=== PATIENT | male | born 1945 | race Caucasian/White ===

== ENCOUNTER 2017-08-18 12:07 | Emergency (ER) | payer OTHER ==
[2017-08-18 13:21] LABS: Hematocrit 44 % (42-52); Hemoglobin 14.9 g/dl (14.0-18.0); Mean Corpuscular HGB Conc 34 g/dl (31-36); Mean Corpuscular Hemoglobin 31 pg (27-31); Mean Corpuscular Volume 92 fL (80-94); Mean Platelet Volume 8 um3 (7.4-10.4); Red Blood Count 4.78 10^6/ul (4.0-5.4); Red Cell Distribution Width 14 % (10.5-15); White Blood Count 5.7 10^3/ul (3.5-10.8)
[2017-08-18 13:37] LABS: Albumin 4.1 g/dL (3.2-5.2); BUN/Creatinine Ratio 19.6 (8-20); Calcium 9.5 mg/dL (8.6-10.3); EGFR African American 92.1 (>60); EGFR Non-African American 71.6 (>60); Globulin 2.5 g/dL (2-4); Magnesium 2.2 mg/dL (1.9-2.7); Potassium 4.5 mmol/L (3.5-5.0); Total Bilirubin 0.4 mg/dL (0.2-1.0); Total Protein 6.6 g/dL (6.4-8.9)
[2017-08-18 13:51] LABS: TSH (Thyroid Stimulating Horm) 4.66 mcIU/mL (0.34-5.60)
--- NOTE | 2017-08-18 15:02 | RAD ---
INDICATION: Intracranial injury COMPARISON: None TECHNIQUE: Noncontrast axial source images were acquired from the skull base to the vertex. FINDINGS: Ventricles/sulci: The ventricles and cisterns are normal in size and configuration for age. Brain parenchyma: There is no focal parenchymal finding, evidence of intracranial mass, or intracranial mass effect. Intracranial hemorrhage:None. Extra-axial spaces: There are no abnormal extra axial fluid collections or evidence of extra-axial mass. Calvarium: There is no calvarial fracture or other calvarial abnormality. Scalp: There is no evidence of scalp or extracalvarial soft tissue abnormality. Paranasal sinuses/mastoid: The paranasal sinuses and mastoid air cells are clear. Other: None. IMPRESSION: NEGATIVE EXAMINATION
[2017-08-18 15:13] LABS: Urine Bilirubin Negative (Negative); Urine Glucose Negative (Negative); Urine Nitrite Negative (Negative)
[2017-08-18 19:24] VITALS: BP 124/68
--- NOTE | 2017-08-18 21:00 | ED ---
Devin Sanches Alfonso, scribed for Dagoberto Cha MD on 08/18/17 at 1254 . Complex/Multi-Sys Presentation - HPI Summary HPI Summary: This patient is a 71 year old M presenting to [facility] with a chief complaint of lightheaded dizziness since 6 days ago. He donated blood 6 days ago and had a syncopal episode a few hours after the blood draw. He does not know how long the syncopal episode lasted and it was unwitnessed. The patient rates the pain 1 /10 in severity. Symptoms aggravated by position change. Symptoms alleviated by nothing. Patient reports head trauma (during the syncopal episode), fatigue, diffuse left shoulder pain (after donating blood and returned this morning while at rest), lung congestion, and abdominal bloating and gas. Patient denies SOB, orthopnea, jaw pain, CP, insomnia, and headache. - History Of Current Complaint Chief Complaint: EDChestPainROMI Time Seen by Provider: 08/18/17 12:34 Hx Obtained From: Patient Onset/Duration: Sudden Onset, Lasting Days - 6, Still Present Timing: Constant Aggravating Factor(s): position change Alleviating Factor(s): nothing Associated Signs And Symptoms: Positive: Other - head trauma (during the syncopal episode), fatigue, diffuse left shoulder pain (after donating blood and returned this morning while at rest), lung congestion, and abdominal bloating and gas. Patient denies SOB, orthopnea, jaw pain, CP, insomnia, and headache. - Allergies/Home Medications Allergies/Adverse Reactions: Allergies Allergy/AdvReac Type Severity Reaction Status Date / Time No Known Allergies Allergy Verified 10/17/14 21:23 PMH/Surg Hx/FS Hx/Imm Hx Opthamlomology History: Denies: Hx Legally Blind EENT History: Denies: Hx Deafness Infectious Disease History: No Infectious Disease History: Denies: Traveled Outside the [place] in Last 30 Days - Family History Known Family History: Positive: Cardiac Disease - Father had MD x3 in the 60s - Social History Alcohol Use: Weekly Substance Use Type: Reports: None Smoking Status (MU): Former Smoker Review of Systems Positive: Fatigue Negative: Chest Pain Positive: Other - lung congestion." Negative orthopnea. Negative: Shortness Of Breath Positive: Other - abdominal bloating and gas Positive: Other - diffuse left shoulder pain (after donating blood and returned this morning while at rest); negative jaw pain Neurological: Other - lightheaded dizziness, head trauma (during the syncopal episode); negative insomnia, and headache. All Other Systems Reviewed And Are Negative: Yes Physical Exam - Summary Physical Exam Summary: Appearance: Well-appearing, no pain distress Skin: Warm, dry, color reflects adequate perfusion Head/face: Nml head/face Eyes: [place] conjunctiva. No nystagmus ENT: Nml ENT Neck: Supple, non-tender Respiratory: CTA, breath sound present Cardiovascular: RRR, Possible soft systolic ejection murmur Abdomen: Abd soft, non-tender, Bowel: Bowel sounds present Musculoskeletal: Nml musculoskeletal Neurological: Nml neuro, sensory/motor intact, A&Ox3, CN Intact II-III, GCS: 15 Psychiatric: Nml psychiatric, affect/mood appropriate Triage Information Reviewed: Yes Vital Signs On Initial Exam: Initial Vitals Temp Pulse Resp BP Pulse Ox 99.1 F 63 20 148/82 99 08/18/17 12:18 08/18/17 12:18 08/18/17 12:18 08/18/17 12:18 08/18/17 12:18 Vital Signs Reviewed: Yes - Zoltan Coma Scale Coma Scale Total: 15 Diagnostics - Vital Signs Vital Signs Temp Pulse Resp BP Pulse Ox 08/18/17 12:37 53 15 147/80 99 08/18/17 12:35 57 11 98 08/18/17 12:18 99.1 F 63 20 148/82 99 - Laboratory Lab Results: Lab Results 08/18/17 08/18/17 08/18/17 Range/Units 12:33 12:33 12:33 WBC 5.7 (3.5-10.8) 10^3/ul RBC 4.78 (4.0-5.4) 10^6/ul Hgb 14.9 (14.0-18.0) g/dl Hct 44 (42-52) % MCV 92 (80-94) fL MCH 31 (27-31) pg MCHC 34 (31-36) g/dl RDW 14 (10.5-15) % Plt Count 215 (150-450) 10^3/ul MPV 8 (7.4-10.4) um3 Neut % (Auto) 61.2 (38-83) % Lymph % (Auto) 21.2 L (25-47) % Wilkinson % (Auto) 12.2 H (1-9) % Eos % (Auto) 4.8 (0-6) % Baso % (Auto) 0.6 (0-2) % Absolute Neuts (auto) 3.5 (1.5-7.7) 10^3/ul Absolute Lymphs (auto) 1.2 (1.0-4.8) 10^3/ul Absolute Monos (auto) 0.7 (0-0.8) 10^3/ul Absolute Eos (auto) 0.3 (0-0.6) 10^3/ul Absolute Basos (auto) 0 (0-0.2) 10^3/ul Absolute Nucleated RBC 0 10^3/ul Nucleated RBC % 0 Sodium 135 (133-145) mmol/L Potassium 4.5 (3.5-5.0) mmol/L Chloride 103 (101-111) mmol/L Carbon Dioxide 30 (22-32) mmol/L Anion Gap 2 (2-11) mmol/L BUN 20 (6-24) mg/dL Creatinine 1.02 (0.67-1.17) mg/dL Est GFR ( Amer) 92.1 (>60) Est GFR (Non-Af Amer) 71.6 (>60) BUN/Creatinine Ratio 19.6 (8-20) Glucose 69 L (70-100) mg/dL Lactic Acid 0.9 (0.5-2.0) mmol/L Calcium 9.5 (8.6-10.3) mg/dL Magnesium 2.2 (1.9-2.7) mg/dL Total Bilirubin 0.40 (0.2-1.0) mg/dL AST 25 (13-39) U/L ALT 24 (7-52) U/L Alkaline Phosphatase 70 (34-104) U/L Troponin I 0.00 (<0.04) ng/mL Total Protein 6.6 (6.4-8.9) g/dL Albumin 4.1 (3.2-5.2) g/dL Globulin 2.5 (2-4) g/dL Albumin/Globulin Ratio 1.6 (1-3) TSH 4.66 (0.34-5.60) mcIU/mL Urine Color Urine Appearance Urine pH (5-9) Ur Specific [place] (1.010-1.030) Urine Protein (Negative) Urine Ketones (Negative) Urine Blood (Negative) Urine Nitrate (Negative) Urine Bilirubin (Negative) Urine Urobilinogen (Negative) Ur Leukocyte Esterase (Negative) Urine Glucose (Negative) 08/18/17 08/18/17 Range/Units 14:58 16:19 WBC (3.5-10.8) 10^3/ul RBC (4.0-5.4) 10^6/ul Hgb (14.0-18.0) g/dl Hct (42-52) % MCV (80-94) fL MCH (27-31) pg MCHC (31-36) g/dl RDW (10.5-15) % Plt Count (150-450) 10^3/ul MPV (7.4-10.4) um3 Neut % (Auto) (38-83) % Lymph % (Auto) (25-47) % Wilkinson % (Auto) (1-9) % Eos % (Auto) (0-6) % Baso % (Auto) (0-2) % Absolute Neuts (auto) (1.5-7.7) 10^3/ul Absolute Lymphs (auto) (1.0-4.8) 10^3/ul Absolute Monos (auto) (0-0.8) 10^3/ul Absolute Eos (auto) (0-0.6) 10^3/ul Absolute Basos (auto) (0-0.2) 10^3/ul Absolute Nucleated RBC 10^3/ul Nucleated RBC % Sodium (133-145) mmol/L Potassium (3.5-5.0) mmol/L Chloride (101-111) mmol/L Carbon Dioxide (22-32) mmol/L Anion Gap (2-11) mmol/L BUN (6-24) mg/dL Creatinine (0.67-1.17) mg/dL Est GFR ( Amer) (>60) Est GFR (Non-Af Amer) (>60) BUN/Creatinine Ratio (8-20) Glucose (70-100) mg/dL Lactic Acid (0.5-2.0) mmol/L Calcium (8.6-10.3) mg/dL Magnesium (1.9-2.7) mg/dL Total Bilirubin (0.2-1.0) mg/dL AST (13-39) U/L ALT (7-52) U/L Alkaline Phosphatase (34-104) U/L Troponin I 0.00 (<0.04) ng/mL Total Protein (6.4-8.9) g/dL Albumin (3.2-5.2) g/dL Globulin (2-4) g/dL Albumin/Globulin Ratio (1-3) TSH (0.34-5.60) mcIU/mL Urine Color Yellow Urine Appearance Clear Urine pH 7.0 (5-9) Ur Specific [place] 1.009 L (1.010-1.030) Urine Protein Negative (Negative) Urine Ketones Negative (Negative) Urine Blood Negative (Negative) Urine Nitrate Negative (Negative) Urine Bilirubin Negative (Negative) Urine Urobilinogen Negative (Negative) Ur Leukocyte Esterase Negative (Negative) Urine Glucose Negative (Negative) Result Diagrams: 08/18/17 12:33 08/18/17 12:33 Lab Statement: Any lab studies that have been ordered have been reviewed, and results considered in the medical decision making process. - CT Brain CT Interpretation Completed By: Radiologist - NEGATIVE EXAMINATION. ED physician has reviewed this radiology report and agrees. - EKG 1225 Cardiac Rate: Bradycardia - BPM 51 EKG Rhythm: Sinus Bradycardia EKG Interpretation: LAD EKG Comparison: No Significant Change - 01/12/2011 Complex Multi-Symp Course/Dx Course Of Treatment: Mr. Salcedo presented with a concern for lightheadedness continuously for the last 6 days sicne he donated blood. He drove himsilf home and then slept for a couple hours in the truck since he was so tired. When he got out of the truck he fainted. Subsequently he has been dizzy (no spinning) and has been normally active although fatigued. This AM, he had some left shoulder pain which he also had briefly after donating the blood. Here his W/U was unremarkable including a delayed troponin. I'm not sure what is causing his symptoms and recommended clos F/U and taking it easy for the time being. - Diagnoses Provider Diagnoses: Dizziness Discharge - Discharge Plan Condition: Stable Disposition: HOME Patient Education Materials: Lightheadedness (ED) Referrals: Lina Schmitz [Primary Care Provider] - 3 Days Additional Instructions: RETURN TO THE EMERGENCY DEPARTMENT FOR CHANGING OR WORSENING SYMPTOMS. The documentation as recorded by the Devin thompson Alfonso accurately reflects the service I personally performed and the decisions made by me, Dagoberto Cha MD.
--- NOTE | 2017-08-19 09:53 | ED ---
Progress - Progress Note Progress Note: I called Mr. Salcedo this AM to check up on him. He reported that his pain had gone away, he got a good night sleep and today is completely asymptomatic. He has no dizziness, fatigue or shoulder pain. I recommended that if his symptoms returned he should go back to the hospital or call 911 and he agreed. Course/Dx - Course Course Of Treatment: Mr. Salcedo presented with a concern for lightheadedness continuously for the last 6 days sicne he donated blood. He drove himsilf home and then slept for a couple hours in the truck since he was so tired. When he got out of the truck he fainted. Subsequently he has been dizzy (no spinning) and has been normally active although fatigued. This AM, he had some left shoulder pain which he also had briefly after donating the blood. Here his W/U was unremarkable including a delayed troponin. I'm not sure what is causing his symptoms and recommended clos F/U and taking it easy for the time being. - Diagnoses Provider Diagnoses: Dizziness
== END 2017-08-18 19:24 | disposition home or self-care (01) ==
LOC: ED 12:07
DX: R42 Dizziness and giddiness (principal); Z87.891 Personal history of nicotine dependence
CPT/HCPCS: 36415; 70450; 80053; 81003; 83605; 83735; 84443; 84484; 85025; 93005; 99284

== ENCOUNTER 2017-12-14 11:49 | Emergency (ER) | payer OTHER ==
--- NOTE | 2017-12-14 12:31 | ED ---
Lower Extremity - HPI Summary HPI Summary: 72-year-old male presents with bilateral knee and petit pain after falling off ladder a week ago. He states he had a helmet on and had boots on when the fall occurred. He states he fell 10 feet. He denies any head injury or LOC. He denies any neck pain. He denies any back pain. He denies any hip pain. He is able to ambulate. He has been resting icing and elevating the area. He states is not improving as much as he would like. He states he feels some weakness in his knee. The knees are not getting out. His right is worse than his left. He has swelling to his right leg. He denies any numbness or tingling. He denies any weakness. He states his tendons feel really tight near his knee. - History of Current Complaint Chief Complaint: EDExtremityLower Stated Complaint: PAIN Time Seen by Provider: 12/14/17 12:02 Pain Intensity: 2 - Allergies/Home Medications Allergies/Adverse Reactions: Allergies Allergy/AdvReac Type Severity Reaction Status Date / Time No Known Allergies Allergy Verified 10/17/14 21:23 PMH/Surg Hx/FS Hx/Imm Hx Endocrine/Hematology History: Denies: Hx Anticoagulant Therapy Sensory History: Denies: Hx Legally Blind, Hx Deafness Opthamlomology History: Denies: Hx Legally Blind Psychiatric History: Reports: Hx Depression Infectious Disease History: No Infectious Disease History: Denies: Traveled Outside the [place] in Last 30 Days - Family History Known Family History: Positive: Cardiac Disease - Father had PR x3 in the 60s - Social History Alcohol Use: Weekly Substance Use Type: Reports: None Smoking Status (MU): Former Smoker Review of Systems Negative: Fever Negative: Chest Pain Negative: Shortness Of Breath Positive: Myalgia - lower leg pain All Other Systems Reviewed And Are Negative: Yes Physical Exam Triage Information Reviewed: Yes Vital Signs On Initial Exam: Initial Vitals Temp Pulse Resp BP Pulse Ox 97.5 F 63 16 157/77 99 12/14/17 11:51 12/14/17 11:51 12/14/17 11:51 12/14/17 11:51 12/14/17 11:51 Vital Signs Reviewed: Yes Appearance: Positive: Well-Appearing Skin: Positive: Warm, Dry Head/Face: Positive: Normal Head/Face Inspection Eyes: Positive: Normal, Conjunctiva Clear Respiratory/Lung Sounds: Positive: Clear to Auscultation, Breath Sounds Present Cardiovascular: Positive: Normal, RRR Musculoskeletal: Positive: Strength/ROM Intact - left and right lower leg, Edema Right - petit, Other - good pulses, capillary refill<2 secs, nontender back , neg SLR, sensation grossly intact, pos ballotment bilateral, neg anterior drawer Neurological: Positive: Normal Psychiatric: Positive: Normal Diagnostics - Vital Signs Vital Signs Temp Pulse Resp BP Pulse Ox 12/14/17 12:27 64 21 98 12/14/17 11:51 97.5 F 63 16 157/77 99 - Laboratory Lab Statement: Any lab studies that have been ordered have been reviewed, and results considered in the medical decision making process. - Radiology knee Xray Interpretation: Positive (See Comments) - IMPRESSION: NONDISPLACED FRACTURE OF THE PROXIMAL LEFT FIBULA. Radiology Interpretation Completed By: Radiologist - Ultrasound No standard instances Ultrasound Interpretation: No Acute Changes Ultrasound Interpretation Completed By: Radiologist Lower Extremity Course/Dx - Course Course Of Treatment: 72-year-old male presents with bilateral knee and petit pain after falling off ladder a week ago. He states he had a helmet on and had boots on when the fall occurred. He states he fell 10 feet. He denies any head injury or LOC. He denies any neck pain. He denies any back pain. He denies any hip pain. He is able to ambulate. He has been resting icing and elevating the area. He states is not improving as much as he would like. He states he feels some weakness in his knee. The knees are not getting out. His right is worse than his left. He has swelling to his right leg. He denies any numbness or tingling. He denies any weakness. He states his tendons feel really tight near his knee. On exam has edema of the right petit. Negative Homans. Positive ballottement. Neurovascularly intact. X-ray show left fibula fracture. ultrasound right neg. will place left knee in knee immobilizer. Will have follow-up with refill. Patient understands and agrees plan. - Diagnoses Differential Diagnosis/HQI/PQRI: Positive: Fracture (Closed), Sprain, Strain Provider Diagnoses: Bilateral leg pain, Left fibular fracture Discharge - Discharge Plan Condition: Good Disposition: HOME Patient Education Materials: Leg Fracture (ED) Referrals: Lina De [Primary Care Provider] - Luis M Montgomery MD [Medical Doctor] - Additional Instructions: Take Tylenol or ibuprofen every 6 hours as needed for pain Apply ice, rest, elevate Keep immobilize on area Follow up with primary care physician within 5 days A referral was given for ortho Return to ED if develop any new or worsening symptoms
--- NOTE | 2017-12-14 13:35 | RAD ---
INDICATION: Bilateral knee injury. TECHNIQUE: 4 views of both knees were obtained. FINDINGS: The bones are normal alignment. No joint effusion is present. There is an oblique nondisplaced fracture of the proximal left fibula. Joint spaces appear maintained. IMPRESSION: NONDISPLACED FRACTURE OF THE PROXIMAL LEFT FIBULA.
--- NOTE | 2017-12-14 13:51 | RAD ---
INDICATION: Pain and swelling. Right calf swelling COMPARISON: None TECHNIQUE: Duplex interrogation of the Lowerextremity was performed. FINDINGS: Deep veins: The common femoral, great saphenous, profunda femoris, proximal, mid, and distal deep femoral, popliteal, posterior tibial, and peroneal veins are patent. There is normal compressibility, augmentation, and phasic flow. Superficial veins: There are no findings of superficial thrombophlebitis. Popliteal fossa:There is no evidence of a popliteal cyst. Soft tissues: There is a small amount of calf edema. IMPRESSION: No evidence of deep venous thrombosis
[2017-12-14 14:28] VITALS: BP 125/79
== END 2017-12-14 14:28 | disposition home or self-care (01) ==
LOC: ED 11:49
DX: S82.402A Unspecified fracture of shaft of left fibula, initial encounter for closed fracture (principal); M25.562 Pain in left knee; M25.561 Pain in right knee; Z87.891 Personal history of nicotine dependence; W11.XXXA Fall on and from ladder, initial encounter; Y92.9 Unspecified place or not applicable
CPT/HCPCS: 99282

== ENCOUNTER 2018-08-07 22:25 | Emergency (ER) | payer OTHER ==
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
[2018-08-08 00:50] VITALS: BP 123/68
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
--- NOTE | 2018-08-08 03:32 | ED ---
Head Injury - HPI Summary HPI Summary: The pt is a 72 y.o male presenting to the [facility] with a chief complaint of head injury. The head injury is reported to have been due to an object having fallen onto the front of his head The onset of the injury was 1530. The pt reports TINOCO and rates the TINOCO to be 1/10 in severity. Symptoms are aggravated by nothing. Symptoms are alleviated by nothing. Pt denies LOC. Ibuprofen was taken and the pt denies being on anticoagulants as per triage report. Pt also denies N/V. - History Of Current Complaint Chief Complaint: EDHeadInjury Stated Complaint: HEAD INJURY Hx Obtained From: Patient Mechanism Of Injury: Blunt Trauma Onset/Duration: Started Hours Ago - at 1530 08/07/18 Severity Currently: Mild Pain Intensity: 1 Pain Scale Used: 0-10 Numeric Location of Head Injury: Frontal Aggravating Factor(s): Other: - Nothing Alleviating Factor(s): Other: - Nothing - Allergies/Home Medications Allergies/Adverse Reactions: Allergies Allergy/AdvReac Type Severity Reaction Status Date / Time No Known Allergies Allergy Verified 08/07/18 22:32 PMH/Surg Hx/FS Hx/Imm Hx Endocrine/Hematology History: Denies: Hx Anticoagulant Therapy Sensory History: Denies: Hx Legally Blind, Hx Deafness Opthamlomology History: Denies: Hx Legally Blind Psychiatric History: Reports: Hx Depression Infectious Disease History: No Infectious Disease History: Denies: Traveled Outside the [place] in Last 30 Days - Family History Known Family History: Positive: Cardiac Disease - Father had [place] x3 in the 60s Family History: Other FHx reviewed and noncontributory - Social History Alcohol Use: Weekly Substance Use Type: Reports: None Smoking Status (MU): Former Smoker Review of Systems Constitutional: Negative Eyes: Negative ENT: Negative Cardiovascular: Negative Respiratory: Negative Negative: Vomiting, Nausea Genitourinary: Negative Musculoskeletal: Negative Skin: Negative Neurological: Other - TINOCO and Head injury (frontal) Negative: Syncope Psychological: Normal All Other Systems Reviewed And Are Negative: Yes Physical Exam - Summary Physical Exam Summary: VITAL SIGNS: Reviewed. GENERAL: Patient is a well-developed and nourished (MALE) who is lying comfortable in the stretcher. Patient is not in any acute respiratory distress. HEAD AND FACE: No signs of trauma. No ecchymosis, hematomas or skull depressions. No sinus tenderness. EYES: PERRLA, EOMI x 2, No injected conjunctiva, no nystagmus. EARS: Hearing grossly intact. Ear canals and tympanic membranes are within normal limits. MOUTH: Oropharynx within normal limits. NECK: Supple, trachea is midline, no adenopathy, no JVD, no carotid bruit, no c- spine tenderness, neck with full ROM. CHEST: Symmetric, no tenderness at palpation LUNGS: Clear to auscultation bilaterally. No wheezing or crackles. CVS: Regular rate and rhythm, S1 and S2 present, no murmurs or gallops appreciated. ABDOMEN: Soft, non-tender. No signs of distention. No rebound no guarding, and no masses palpated. Bowel sounds are normal. EXTREMITIES: FROM in all major joints, no edema, no cyanosis or clubbing. NEURO: Alert and oriented x 3. No acute neurological deficits. Speech is normal and follows commands. SKIN: Dry and warm Triage Information Reviewed: Yes Vital Signs On Initial Exam: Initial Vitals Temp Pulse Resp BP Pulse Ox 97.8 F 72 16 151/77 98 08/07/18 22:30 08/07/18 22:30 08/07/18 22:30 08/07/18 22:30 08/07/18 22:30 Vital Signs Reviewed: Yes Diagnostics - Vital Signs Vital Signs Temp Pulse Resp BP Pulse Ox 08/08/18 01:29 98.2 F 59 16 123/68 97 08/08/18 00:32 98.2 F 59 16 123/68 97 08/07/18 22:30 97.8 F 72 16 151/77 98 - Laboratory Lab Statement: Any lab studies that have been ordered have been reviewed, and results considered in the medical decision making process. - CT Brain CT CT Interpretation Completed By: Radiologist - Brain CT reveals No acute intracranial pathology as per radiologist report. ED physician has reviewed this radiology report. Head Injury Course/Dx Course Of Treatment: The pt is a 72 y.o male with a chief complaint of head injury s/p a object fell onto the front portion of his head. The pt recieved a Brain CT with negative findings as per radiologist report. The pt will be discharged home with a dx of Head injury and a recommendation to take tylenol for pain and a follow up with his PCP within 1 to 2 days. - Diagnoses Provider Diagnoses: Head injury Discharge - Sign-Out/Discharge Documenting (check all that apply): Patient Departure - Discharge home - Discharge Plan Condition: Stable Disposition: HOME Patient Education Materials: Head Injury (ED) Referrals: Lina De [Primary Care Provider] - Additional Instructions: RETURN TO THE EMERGENCY DEPARTMENT FOR CHANGING OR WORSENING SYMPTOMS. FOLLOW UP WITH PCP IN 1-2 DAYS. We recommend taking Tylenol for Headache. - Billing Disposition and Condition Condition: STABLE Disposition: Home - Attestation Statements Document Initiated by Scribe: Yes Documenting Scribe: Marc Oleary Provider For Whom Scribe is Documenting (Include Credential): Dr. Rosalio Patterson Scribe Attestation: Marc Sanches, anushaed for Dr. Rosalio Patterson on 08/08/18 at 0622. Scribe Documentation Reviewed: Yes Provider Attestation: The documentation as recorded by the Marc thompson accurately reflects the service I personally performed and the decisions made by me, Dr. Rosalio Patterson
== END 2018-08-08 01:29 | disposition home or self-care (01) ==
LOC: ED 22:25
DX: S09.90XA Unspecified injury of head, initial encounter (principal); W19.XXXA Unspecified fall, initial encounter; Y92.9 Unspecified place or not applicable; Z87.891 Personal history of nicotine dependence
CPT/HCPCS: 70450; 99281